=== PATIENT | female | born 1985 | race Caucasian/White ===

== ENCOUNTER 2018-11-09 16:53 | Emergency (ER) | payer MEDICARE, OTHER ==
[~2018-11-09] VITALS: Ht 160 cm; Wt 66.7 kg
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
[2018-11-09] MEDS ORDERED: HYDR-3164 PO (17:48)
[2018-11-09] MEDS ORDERED: NAPR500T8 PO (17:48)
[2018-11-09] MEDS ORDERED: CYCL10TA2 PO (17:48)
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
[2018-11-09 17:52] VITALS: BP 111/70
== END 2018-11-09 17:56 | disposition home or self-care (01) ==
LOC: ER 16:53
DX: M25.571 Pain in right ankle and joints of right foot (principal); M25.561 Pain in right knee; V43.52XA Car driver injured in collision with other type car in traffic accident, initial encounter; Y93.89 Activity, other specified; Y92.410 Unspecified street and highway as the place of occurrence of the external cause; Y99.8 Other external cause status
CPT/HCPCS: 73562; 73590; 73610; 99284